=== PATIENT | female | born 1940 | race Two or more races ===

== ENCOUNTER 2018-06-02 12:01 | Emergency (ER) | payer MEDICARE, MEDICAID ==
[~2018-06-02] VITALS: Ht 157.5 cm; Wt 72.6 kg
[2018-06-02] MEDS ORDERED: NEURONTIN300 MG ORAL (12:08)
--- NOTE | 2018-06-02 12:13 | NUR ---
ED Nurse Note: Pt came from home s/p fall n Sunday. According to daughter, pt had a mistep and fell on her face. A ground level fall. Pt noted to have bruising and swelling on bilateral eyes. Pt is complaining of 8/10 pain in the area. Non radiating. Pt is A + O x4. Ambulatory. Skin warm to touch.
--- NOTE | 2018-06-02 12:25 | Emergency Room Report ---
History of Present Illness General Chief Complaint: Head Injury Source: Patient Present Illness HPI Patient had a non-syncopal fall on Sunday. She hit her face, left knee and right forearm. There wind was knocked out of her for a few seconds. She had no loss of consciousness. She's got bruising around her face right arm her left knee. There was some blood loss when she fell from her forehead and nose. The pain is 9/10 at this time. She believes it's greater than 10 years since her last tetanus shot. 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 She's only been taking Tylenol and this is helped somewhat. She's also used antibiotic ointment on the scrapes. She feels a clicking in her neck when moving. She feels some itching around her eyes. No fevers, chills, chest pain, palpitations, nausea, vomiting, diarrhea, dysuria , abdominal pain, shortness of breath, depression, visual changes, headache. Allergies: Coded Allergies: No Known Allergies (Unverified , 06/02/18) Patient History Past Medical History: see triage record Past Surgical History: other - Knee replacement Social History: Denies: smoking, alcohol use, drug use Social History Narrative from [facility] Now: No Reviewed Nursing Documentation: PMH: Agreed; PSxH: Agreed Nursing Documentation-PMH Past Medical History: No History, Except For Hx Hypertension: Yes Hx Asthma: Yes Hx COPD: Yes Hx Diabetes: Yes Review of Systems All Other Systems: negative except mentioned in HPI Physical Exam Vital Signs Date Time Temp Pulse Resp B/P (MAP) Pulse Ox O2 Delivery O2 Flow Rate FiO2 06/02/18 12:02 98.4 75 18 127/77 94 Room Air Sp02 EP Interpretation: reviewed, normal General Appearance: no apparent distress, alert, GCS 15 Head: normocephalic, other - forehead hematoma and abrasion Eyes: bilateral eye PERRL, bilateral eye EOMI, bilateral eye other - racoon's eyes ENT: normal pharynx, moist mucus membranes, other - nasal abrasion and slight swelling Neck: full range of motion, supple, no bony tend Respiratory: chest non-tender, lungs clear, normal breath sounds Cardiovascular #1: regular rate, rhythm Cardiovascular #2: 2+ radial (R) Gastrointestinal: normal inspection, normal bowel sounds, non tender, no mass, non-distended Genitourinary: no CVA tenderness Musculoskeletal: digits/nails normal, gait/station normal, normal range of motion, tender - R forearm, not tender wrist, elbow or shoulder Neurologic: alert, oriented x3, food service agent III-XII nml as tested, motor strength/tone normal, DTRs symmetric, sensory intact, cerebellar normal, normal gait, speech normal Psychiatric: mood/affect normal Skin: warm/dry, other - ecchymoses bilat periorbital, r forearm, min L knee, hematoma - forehead Medical Decision Making Diagnostic Impression: Primary Impression: Multiple trauma Additional Impressions: Fall Qualified Codes: W19.XXXA - Unspecified fall, initial encounter Acute head injury Qualified Codes: S09.90XA - Unspecified injury of head, initial encounter Contusion of right arm Qualified Codes: S40.021A - Contusion of right upper arm, initial encounter Contusion of left knee Qualified Codes: S80.02XA - Contusion of left knee, initial encounter ER Course Patient presents with multiple injuries post-fall on Sunday. CT of the head maxillofacial bones right forearm are indicated. In addition EKG and lab work will be performed. Tetanus is indicated as well as analgesia. Differential includes nasal fracture, ulnar fracture, knee contusion, brain bleed amongst others. EKG without injury. Right forearm without fracture. Left knee post knee replacement. CT head no intracranial abnormalities. Maxillofacial no fractures but ecchymoses. Labs unremarkable. Patient improved with treatment. Slight dizziness post Percocet. Discussed x-ray findings with patient and daughter. All applied by me left knee. Tension and position excellent. Distal neurovascular checked by me and normal. Some improvement with the All. Patient stable for outpatient observation and treatment. Laboratory Tests Test 06/02/18 12:25 06/02/18 12:30 Sodium Level 141 MMOL/L (136-145) Potassium Level 4.7 MMOL/L (3.5-5.1) Chloride Level 105 MMOL/L (98-107) Carbon Dioxide Level 31 MMOL/L (21-32) Anion Gap 5 mmol/L (5-15) Blood Urea Nitrogen 16 mg/dL (7-18) Creatinine 0.7 MG/DL (0.55-1.30) Estimate Glomerular Filtration Rate mL/min (>60) Glucose Level 104 MG/DL (74-106) Calcium Level 9.4 MG/DL (8.5-10.1) Total Bilirubin 0.4 MG/DL (0.2-1.0) Aspartate Amino Transferase (AST) 18 U/L (15-37) Alanine Aminotransferase (ALT) 27 U/L (12-78) Alkaline Phosphatase 62 U/L (46-116) Total Protein 7.1 G/DL (6.4-8.2) Albumin 3.4 G/DL (3.4-5.0) Globulin 3.7 g/dL Albumin/Globulin Ratio 0.9 (1.0-2.7) L White Blood Count 5.8 K/UL (4.8-10.8) Red Blood Count 4.53 M/UL (4.20-5.40) Hemoglobin 14.0 G/DL (12.0-16.0) Hematocrit 42.7 % (37.0-47.0) Mean Corpuscular Volume 94 FL (80-99) Mean Corpuscular Hemoglobin 30.9 PG (27.0-31.0) Mean Corpuscular Hemoglobin Concent 32.8 G/DL (32.0-36.0) Red Cell Distribution Width 13.3 % (11.6-14.8) Platelet Count 165 K/UL (150-450) Mean Platelet Volume 7.1 FL (6.5-10.1) Neutrophils (%) (Auto) 68.1 % (45.0-75.0) Lymphocytes (%) (Auto) 19.4 % (20.0-45.0) L Monocytes (%) (Auto) 7.5 % (1.0-10.0) Eosinophils (%) (Auto) 4.1 % (0.0-3.0) H Basophils (%) (Auto) 0.8 % (0.0-2.0) Urine Color Yellow Urine Appearance Clear Urine pH 5 (4.5-8.0) Urine Specific [place] 1.010 (1.005-1.035) Urine Protein Negative (NEGATIVE) Urine Glucose (UA) Negative (NEGATIVE) Urine Ketones Negative (NEGATIVE) Urine Blood 1+ (NEGATIVE) H Urine Nitrite Negative (NEGATIVE) Urine Bilirubin Negative (NEGATIVE) Urine Urobilinogen Normal MG/DL (0.0-1.0) Urine Leukocyte Esterase 1+ (NEGATIVE) H Urine RBC 0-2 /HPF (0 - 2) Urine WBC 0-2 /HPF (0 - 2) Urine Squamous Epithelial Cells Occasional /LPF Urine Bacteria Occasional /HPF (NONE) Troponin I 0.000 ng/mL (0.000-0.056) Serum Alcohol < 3 mg/dL EKG Diagnostic Results Rate: normal Rhythm: NSR ST Segments: no acute changes Rhythm Strip Diag. Results EP Interpretation: yes Rhythm: NSR, no PVC's, no ectopy Other X-Ray Diagnostic Results Other X-Ray Diagnostic Results #1: X-Ray ordered: R forearm # of Views/Limited Vs Complete: 3 View Indication: Other EP Interpretation: Yes Interpretation: no dislocation, no fractures, other - STS Impression: Other Electronically Signed by: Electronically signed by Cesar Oshea MD Other X-Ray Diagnostic Results #2: X-Ray ordered: L knee # of Views/Limited Vs Complete: 3 View Indication: Other EP Interpretation: Yes Interpretation: no dislocation, no fractures, other - STS, replacement Impression: Other Electronically Signed by: Electronically signed by Cesar Oshea MD CT/MRI/US Diagnostic Results CT/MRI/US Diagnostic Results #1: Imaging Test Ordered: head Impression No intracranial pathology CT/MRI/US Diagnostic Results #2: Imaging Test Ordered: maxilofacial Impression Soft tissue swelling no fractures Last Vital Signs Date Time Temp Pulse Resp B/P (MAP) Pulse Ox O2 Delivery O2 Flow Rate FiO2 06/02/18 14:52 98.3 63 23 130/55 98 Room Air Status: improved Disposition: HOME, SELF-CARE Condition: Improved Scripts Diphenhydramine Hcl* (BENADRYL*) 25 Mg Capsule 25 MG ORAL Q6H PRN for Itching, #10 CAP Prov: Cesar Oshea MD 06/02/18 Tramadol Hcl* (ULTRAM*) 50 Mg Tablet 50 MG ORAL Q6H PRN for For Pain, #10 TAB 0 Refills Prov: Cesar Oshea MD 06/02/18 Cesar Oshea MD Jun 02, 2018 12:25
[2018-06-02] MEDS ORDERED: oxyCODONE HCL/Acetaminophen 5/325mg PO ONE (12:30)
[2018-06-02 12:36] VITALS: BP 141/70
--- NOTE | 2018-06-02 12:47 | NUR ---
ED Nurse Note: Pt went down to CT.
--- NOTE | 2018-06-02 12:53 | NUR ---
ED Nurse Note: SPOKE TO ULICES IN REGARDS OF PLACING ORDER FOR TDAP. SPOKE TO CRISTOPHER FROM PHARMACY THAT IT IS OK TO OVER RIDE THE TDAP IM SHOT FOR NOW. DR. CALLE UNABLE TO PLACE THE ORDER FOR IT DUE TO COMMENT OF DUPLICATE ORDER EVEN THOUGH THERE WAS NOT ANY ORDER PLACED IN YET FOR IT
[2018-06-02] MEDS ORDERED: Tetanus/Diptheria/Pertussis IM ONE (12:57)
--- NOTE | 2018-06-02 12:59 | NUR ---
TDAP Vaccine Lot/MFR/Exp Lot: [id number] MFR: Melody Management Exp: 07/06/20 System not allowing TDAP vaccine to be entered. Manually entered as non-form to allow MD to order and RN to administer as ordered.
[2018-06-02] MEDS ORDERED: [UNRECOGNIZED DRUG - OTHER] IM ONE (13:00)
--- NOTE | 2018-06-02 13:00 | NUR ---
ED Nurse Note: DISPENSED THE TDAP SHOT WITH PHARMACY, TDAP INFO: LOT#[id number], EXP: 07/06/20, VERBAL CONSENT OBTAINED
[2018-06-02 13:01] LABS: APPEARANCE,URINE CLEAR; BILIRUBIN, URINE NEGATIVE (NEGATIVE); COLOR,URINE YELLOW; GLUCOSE, URINE (UA) NEGATIVE (NEGATIVE); KETONES,URINE NEGATIVE (NEGATIVE); LEUKOCYTE ESTERASE ,URINE 1+ (NEGATIVE); NITRITE,URINE NEGATIVE (NEGATIVE); PH,URINE 5 (4.5-8.0); PROTEIN,URINE NEGATIVE (NEGATIVE); UROBILINOGEN,URINE NORMAL MG/DL (0.0-1.0)
[2018-06-02 13:02] LABS: ANION GAP 5 mmol/L (5-15); BLOOD UREA NITROGEN 16 mg/dL (7-18); CALCIUM 9.4 MG/DL (8.5-10.1); CARBON DIOXIDE 31 MMOL/L (21-32); CHLORIDE 105 MMOL/L (98-107); CREATININE 0.7 MG/DL (0.55-1.30); POTASSIUM 4.7 MMOL/L (3.5-5.1); SODIUM 141 MMOL/L (136-145)
[2018-06-02 13:06] LABS: ALANINE AMINOTRANSFERASE 27 U/L (12-78); ALBUMIN 3.4 G/DL (3.4-5.0); ALBUMIN/GLOBULIN RATIO 0.9 (1.0-2.7); ALKALINE PHOSPHATASE 62 U/L (46-116); ASPARTATE AMINO TRANSFERASE 18 U/L (15-37); BILIRUBIN,TOTAL 0.4 MG/DL (0.2-1.0)
[2018-06-02] MEDS ORDERED: SINGULAIR10 MG ORAL (13:16)
[2018-06-02] MEDS ORDERED: ZOLOFT25 MG ORAL (13:17)
--- NOTE | 2018-06-02 13:26 | NUR ---
ED Nurse Note: TDap vaccination administered on L deltoid.
[2018-06-02 13:28] LABS: BASOPHILS % (AUTO) 0.8 % (0.0-2.0); EOSINOPHILS % (AUTO) 4.1 % (0.0-3.0); HEMATOCRIT 42.7 % (37.0-47.0); LYMPHOCYTES % (AUTO) 19.4 % (20.0-45.0); MEAN CORPUSCULAR VOLUME 94 FL (80-99); MONOCYTES % (AUTO) 7.5 % (1.0-10.0); NEUTROPHILS % (AUTO) 68.1 % (45.0-75.0); PLATELET COUNT 165 K/UL (150-450); RED BLOOD COUNT 4.53 M/UL (4.20-5.40); RED CELL DISTRIBUTION WIDTH 13.3 % (11.6-14.8); WHITE BLOOD COUNT 5.8 K/UL (4.8-10.8)
[2018-06-02] MEDS ORDERED: TRAMADOL HCL50 MG ORAL (14:37)
[2018-06-02] MEDS ORDERED: BENADRYL25 MG ORAL (14:37)
[2018-06-02] MEDS ORDERED: Bacitracin Oint UD TOPIC ONE (14:45)
[2018-06-02 14:52] VITALS: BP 130/55
--- NOTE | 2018-06-02 14:53 | NUR ---
ER DISCHARGE NOTE: Patient is cleared to be discharged per ERMD, pt is aox4, on room air, with stable vital signs. pt was given dc and prescription instructions, pt was able to verbalize understanding, pt id band and iv site removed without complications. pt is able to ambulate with steady gait. pt took all belongings.
--- NOTE | 2018-06-03 08:58 | Diagnostic Imaging Report ---
Indications: Trauma, pain, status post fall Technique: Spiral images obtained through the facial bones. No IV contrast utilized. Multiplanar reconstructions were generated.Total dose length product 1905 mGycm. CTDIvol(s) 70, 28 mGy. Dose reduction achieved using automated exposure control Comparison: none Findings: No acute fractures. No worrisome sinus opacification. Optic globes and retroseptal orbits appear intact. There is mild bilateral malar region soft tissue swelling. There are degenerative changes of the cervical spine. Visualized intracranial structures appear unremarkable. Impression: Soft tissue swelling. No acute bony trauma This agrees with the preliminary interpretation provided overnight by [facility] service. The CT scanner at [facility] is accredited by the [employer] and the scans are performed using protocols designed to limit radiation exposure to as low as reasonably achievable to attain images of sufficient resolution adequate for diagnostic evaluation.
--- NOTE | 2018-06-03 09:00 | Diagnostic Imaging Report ---
Indications: Pain, status post fall Technique: Spiral acquisitions obtained through the brain. Angled axial and coronal 5 x 5 mm slices were reconstructed. Total dose length product 1905.57 mGycm. CTDI vol(s) 70.38,28.19 mGy. Dose reduction achieved using automated exposure control Comparison: None. Findings: There is a focal frontal midline scalp hematoma Normal for age ventricles and extra axial CSF spaces. Normal edwards-white differentiation. No acute intracranial hemorrhage or edema, mass effect, nor midline shift. There is evidence of prior ocular surgery on the right. Visualized sinuses are unremarkable. Impression: Evidence of scalp soft tissue injury. Negative for acute intracranial bleed or mass effect This agrees with the preliminary interpretation provided overnight by [facility]. The CT scanner at [facility] is accredited by the [employer] and the scans are performed using protocols designed to limit radiation exposure to as low as reasonably achievable to attain images of sufficient resolution adequate for diagnostic evaluation.
[2018-06-03] MEDS ORDERED: Tetanus/Diptheria/Pertussis IM ONE (09:30)
--- NOTE | 2018-06-03 14:13 | Diagnostic Imaging Report ---
Indications: Pain, trauma to right forearm Technique: Two views of the right forearm Comparison: None Findings: No acute fractures. No dislocations. The joint spaces are preserved. No radiopaque foreign body Impression: Negative
--- NOTE | 2018-06-03 14:14 | Diagnostic Imaging Report ---
Indication: Pain, trauma Technique: 3 views of the left knee Comparison: None Findings: There is a left knee arthroplasty prosthesis in good position. Small calcification projected medial to the joint space does not appear acute, could represent an old avulsion injury or heterotopic ossification. No definite acute fractures. No dislocations. Impression: No acute process. Postsurgical changes, as described
== END 2018-06-02 14:53 | disposition home or self-care (01) ==
LOC: EMR 12:30
DX: S09.90XA Unspecified injury of head, initial encounter (principal); S40.021A Contusion of right upper arm, initial encounter; S80.02XA Contusion of left knee, initial encounter; W19.XXXA Unspecified fall, initial encounter; Y92.9 Unspecified place or not applicable; Z96.653 Presence of artificial knee joint, bilateral; I10 Essential (primary) hypertension; E11.9 Type 2 diabetes mellitus without complications; J44.9 Chronic obstructive pulmonary disease, unspecified; Z23 Encounter for immunization
CPT/HCPCS: 36415; 70450; 70486; 73090; 73562; 80053; 81001; 84484; 85025; 90471; 90715; 93005; 96372; 99284; G0480; 80329